=== PATIENT | female | born 1995 | race African-American/Black ===

== ENCOUNTER 2017-08-27 18:50 | Emergency (ER) | payer MEDICAID ==
[~2017-08-27] VITALS: Ht 170.2 cm; Wt 87.1 kg
[~2017-08-27 18:50] MED LIST: NORPTMEDS CO
[2017-08-27 18:56] VITALS: BP 135/66
== END 2017-08-27 22:10 | disposition left against medical advice (07) ==
LOC: ER 18:57
DX: N89.8 Other specified noninflammatory disorders of vagina (principal); Z53.21 Procedure and treatment not carried out due to patient leaving prior to being seen by health care provider

== ENCOUNTER 2017-08-28 11:11 | Emergency (ER) | payer MEDICAID ==
[~2017-08-28] VITALS: Ht 170.2 cm; Wt 87.1 kg
[2017-08-28 12:11] VITALS: BP 116/80
[2017-08-28] MEDS ORDERED: metroNIDAZOLE 500 MG TAB PO ONE (12:45)
== END 2017-08-28 12:45 | disposition home or self-care (01) ==
LOC: ER 11:11
DX: A64 Unspecified sexually transmitted disease (principal); J45.909 Unspecified asthma, uncomplicated; F17.210 Nicotine dependence, cigarettes, uncomplicated